=== PATIENT | male | born 1945 | race Caucasian/White ===

== ENCOUNTER 2018-05-28 15:39 | Inpatient (IN) | payer MEDICARE, OTHER ==
[2018-05-28 16:06] LABS: ADD MAN DIFF? NO
[2018-05-28 16:08] LABS: BASOPHIL # 0.1 10^3/ul (0.0-0.1); BASOPHILS % 0.5 % (0.0-2.0); EOSINOPHILS # 0.1 10^3/ul (0.0-0.5); EOSINOPHILS % 0.8 % (0.0-7.0); HEMOGLOBIN 13.1 g/dl (14.0-18.0); LYMPHOCYTES # 2.2 10^3/ul (0.8-2.9); LYMPHOCYTES % 16.7 % (15.0-51.0); MEAN CORPUSCULAR HEMOGLOBIN 32.8 pg (29.0-33.0); MEAN CORPUSCULAR HGB CONC 32.8 g/dl (32.0-37.0); MEAN PLATELET VOLUME 10.1 fl (7.4-10.4); MONOCYTE # 0.7 10^3/ul (0.3-0.9); MONOCYTES % 4.9 % (0.0-11.0); NEUTROPHIL # 10.2 10^3/ul (1.6-7.5); NEUTROPHILS % 76.1 % (39.0-77.0); PLATELET COUNT 245 10^3/UL (140-415); RED CELL DISTRIBUTION WIDTH 13.9 % (11.5-14.5)
[2018-05-28 16:08] LABS: WHITE BLOOD COUNT 13.3 10^3/ul (4.8-10.8)
[2018-05-28 16:14] LABS: ALANINE AMINOTRANSFERASE 33 IU/L (13-69); ALBUMIN 3.9 g/dl (3.3-4.9); ALKALINE PHOSPHATASE 47 IU/L (42-121); ANION GAP 14 (8-16); ASPARTATE AMINO TRANSFERASE 25 IU/L (15-46); BILIRUBIN,INDIRECT 0.4 mg/dl (0-1.1); BILIRUBIN,TOTAL 0.4 mg/dl (0.2-1.3); BLOOD UREA NITROGEN 55 mg/dl (7-20); CARBON DIOXIDE 19 mmol/L (21-31); CHLORIDE 113 mmol/L (97-110); CREATINE KINASE 173 IU/L (23-200); CREATININE 3.06 mg/dl (0.61-1.24); GLUCOSE 106 mg/dl (70-220); LIPASE 83 U/L (23-300); POTASSIUM 5.1 mmol/L (3.5-5.1); SODIUM 141 mmol/L (135-144); TOTAL PROTEIN 6.5 g/dl (6.1-8.1)
[2018-05-28] MEDS: SOD CHLORIDE 0.9% 1,000 ML IV ×2 (16:17→22:20)
[2018-05-28] MEDS ORDERED: HYDROCODONE/APAP (5/325) TAB PO (17:30)
[2018-05-28] MEDS ORDERED: ONDANSETRON 4 MG INJ IV (17:30)
[2018-05-29] MEDS: SOD CHLORIDE 0.9% 1,000 ML IV ×3 (03:30→13:30)
[2018-05-29] MEDS ORDERED: ACETAMINOPHEN 325 MG TAB PO (06:30)
[2018-05-29] MEDS ORDERED: ALBUTEROL/IPRATROPIUM (NEB) 3 ML AMP HHN (06:30)
[2018-05-29] MEDS ORDERED: NACL 0.9% 3 ML SYG IV (06:30)
[2018-05-29] MEDS ORDERED: NITROGLYCERIN (SL) 0.4 MG TAB SL (06:30)
[2018-05-29] MEDS ORDERED: MECLIZINE 25 MG TAB PO (06:30)
[2018-05-29] MEDS ORDERED: ONDANSETRON 4 MG INJ IV (06:30)
[2018-05-29 07:25] LABS: ADD MAN DIFF? NO
[2018-05-29 07:29] LABS: BASOPHILS % 0.5 % (0.0-2.0); EOSINOPHILS # 0.1 10^3/ul (0.0-0.5); EOSINOPHILS % 1.6 % (0.0-7.0); HEMATOCRIT 39.2 % (42.0-52.0); HEMOGLOBIN 13.1 g/dl (14.0-18.0); LYMPHOCYTES # 1.6 10^3/ul (0.8-2.9); LYMPHOCYTES % 19.3 % (15.0-51.0); MEAN CORPUSCULAR HEMOGLOBIN 33.2 pg (29.0-33.0); MEAN CORPUSCULAR HGB CONC 33.4 g/dl (32.0-37.0); MEAN CORPUSCULAR VOLUME 99.2 fl (82.0-101.0); MEAN PLATELET VOLUME 10.3 fl (7.4-10.4); MONOCYTE # 0.5 10^3/ul (0.3-0.9); MONOCYTES % 6.2 % (0.0-11.0); NEUTROPHIL # 5.8 10^3/ul (1.6-7.5); NEUTROPHILS % 71.9 % (39.0-77.0); PLATELET COUNT 217 10^3/UL (140-415); RED BLOOD COUNT 3.95 10^6/ul (4.70-6.10); RED CELL DISTRIBUTION WIDTH 13.7 % (11.5-14.5)
[2018-05-29 07:29] LABS: WHITE BLOOD COUNT 8.1 10^3/ul (4.8-10.8)
[2018-05-29 08:09] LABS: HEMOGLOBIN A1C 5.3 % (0-5.9)
[2018-05-29] MEDS: ISOSORBIDE MONONITRATE(SR)60 MG TAB PO (08:37)
[2018-05-29] MEDS: CLOPIDOGREL 75 MG TAB PO (08:37)
[2018-05-29] MEDS: AMLODIPINE 5 MG TAB PO (08:38)
[2018-05-29] MEDS: HEPARIN 5,000 UNIT/0.5 ML VIAL SC (08:43)
[2018-05-29 08:45] LABS: CREATINE KINASE 120 IU/L (23-200)
[2018-05-29 08:54] LABS: ALANINE AMINOTRANSFERASE 23 IU/L (13-69); ALBUMIN 3.4 g/dl (3.3-4.9); ALBUMIN/GLOBULIN RATIO 1.36; ALKALINE PHOSPHATASE 44 IU/L (42-121); ANION GAP 14 (8-16); ASPARTATE AMINO TRANSFERASE 22 IU/L (15-46); BILIRUBIN,INDIRECT 0.2 mg/dl (0-1.1); BILIRUBIN,TOTAL 0.2 mg/dl (0.2-1.3); BLOOD UREA NITROGEN 47 mg/dl (7-20); CALCIUM 8.9 mg/dl (8.4-10.2); CARBON DIOXIDE 20 mmol/L (21-31); CHLORIDE 112 mmol/L (97-110); CHOL/HDL RATIO 4.8 RATIO; CHOLESTEROL 168 mg/dl (100-200); CREATININE 1.43 mg/dl (0.61-1.24); GLUCOSE 91 mg/dl (70-220); HDL CHOLESTEROL 35 mg/dl (31-75); LDL CHOLESTEROL,CALCULATED 67 mg/dl; MAGNESIUM 2.1 mg/dl (1.7-2.5); POTASSIUM 4.7 mmol/L (3.5-5.1); SODIUM 141 mmol/L (135-144); TOTAL PROTEIN 5.9 g/dl (6.1-8.1); TRIGLYCERIDES 331 mg/dl (0-149)
[2018-05-29 08:58] LABS: CK INDEX 1.9; CK-MB 2.28 ng/ml (0.0-2.4)
[2018-05-29] MEDS: DONEPEZIL 10 MG TAB PO (09:06)
[2018-05-29 09:18] LABS: THYROID STIMULATING HORMONE 0.928 MIU/L (0.465-4.680)
[2018-05-29] MEDS: LACTATED RINGER'S 1,000 ML IV (11:02)
[2018-05-29 12:30] LABS: CREATINE KINASE 102 IU/L (23-200)
[2018-05-29 12:31] LABS: ANION GAP 12 (8-16); BLOOD UREA NITROGEN 38 mg/dl (7-20); CALCIUM 8.9 mg/dl (8.4-10.2); CARBON DIOXIDE 21 mmol/L (21-31); CHLORIDE 113 mmol/L (97-110); CREATININE 1.18 mg/dl (0.61-1.24); GLUCOSE 136 mg/dl (70-220); POTASSIUM 4.5 mmol/L (3.5-5.1); SODIUM 141 mmol/L (135-144)
[2018-05-29 12:43] LABS: CK INDEX 2.2; CK-MB 2.25 ng/ml (0.0-2.4); TROPONIN-I < 0.010 ng/ml (0.000-0.120)
[2018-05-29] MEDS ORDERED: ATORVASTATIN 40 MG TAB PO (21:00)
[2018-05-29] MEDS ORDERED: clonAZEPAM 0.5 MG TAB PO (21:00)
[2018-05-30] MEDS ORDERED: PANTOPRAZOLE (EC) 40 MG TAB PO (06:00)
== END 2018-05-29 14:35 | disposition home or self-care (01) | DRG 641 ==
LOC: E/R 15:39 → MS4 17:11
DX: E86.0 Dehydration (principal); N17.9 Acute kidney failure, unspecified; T67.1XXA Heat syncope, initial encounter; I25.10 Atherosclerotic heart disease of native coronary artery without angina pectoris; Z79.02 Long term (current) use of antithrombotics/antiplatelets; F03.90 Unspecified dementia, unspecified severity, without behavioral disturbance, psychotic disturbance, mood disturbance, and anxiety; Z72.0 Tobacco use; I10 Essential (primary) hypertension; E78.2 Mixed hyperlipidemia; K21.9 Gastro-esophageal reflux disease without esophagitis; Y92.007 Garden or yard of unspecified non-institutional (private) residence as the place of occurrence of the external cause
CPT/HCPCS: 36415; 71045; 80048; 80053; 80061; 82550; 82553; 83036; 83690; 83735; 84443; 84484; 85025; 93005; 93880; 99291-25